=== PATIENT | female | born 1990 | race African-American/Black ===

== ENCOUNTER 2019-06-24 10:55 | Emergency (ER) | payer MEDICAID ==
[~2019-06-24] VITALS: Ht 177.8 cm; Wt 150.0 kg
[2019-06-24 13:09] VITALS: BP 141/88
== END 2019-06-24 13:13 | disposition home or self-care (01) ==
LOC: ER 10:55
DX: R07.89 Other chest pain (principal); R06.02 Shortness of breath; R05 Cough; R00.2 Palpitations; R03.0 Elevated blood-pressure reading, without diagnosis of hypertension
CPT/HCPCS: 71045; 93005; 99283

== ENCOUNTER 2019-07-10 10:18 | Emergency (ER) | payer MEDICAID ==
[~2019-07-10] VITALS: Ht 180.3 cm; Wt 145.0 kg
[2019-07-10] MEDS ORDERED: IBUPROFEN 600MG TABLET PO ONE (10:45)
[2019-07-10 12:37] VITALS: BP 155/94
== END 2019-07-10 12:38 | disposition home or self-care (01) ==
LOC: ER 10:18
DX: S82.831A Other fracture of upper and lower end of right fibula, initial encounter for closed fracture (principal); W01.0XXA Fall on same level from slipping, tripping and stumbling without subsequent striking against object, initial encounter; Y93.89 Activity, other specified; Y92.89 Other specified places as the place of occurrence of the external cause; Y99.8 Other external cause status
CPT/HCPCS: 29515; 73610; 99283; Z7610